=== PATIENT | male | born 1970 | race Caucasian/White ===

== ENCOUNTER 2021-07-02 08:42 | Outpatient (CLI) | payer BC, OTHER | END 2021-07-02 08:43 | disposition home or self-care (01) | LOC: CSHCT 08:42 | PROVIDERS: ATTEND Internal Medicine | DX: Z12.2 Encounter for screening for malignant neoplasm of respiratory organs (principal); R91.8 Other nonspecific abnormal finding of lung field | CPT/HCPCS: 71271 ==